=== PATIENT | male | born 1970 | race Two or more races ===

== ENCOUNTER 2017-11-17 17:38 | Emergency (ER) | payer SELFPAY ==
[2017-11-17 18:39] LABS: BILIRUBIN,URINE NEGATIVE (NEG); CLARITY,URINE CLEAR; COLOR,URINE YELLOW; GLUCOSE,URINE NEGATIVE (NEG); NITRITE,URINE NEGATIVE (NEG); PH,URINE 5.5; PROTEIN,URINE NEGATIVE (NEG-TRACE); UROBILINOGEN,URINE 0.2 mg/dL (0.2 mg/dL)
[2017-11-17 18:44] LABS: BACTERIA,URINE 0 /HPF (0-FEW); RBC,URINE OCC /HPF (0-2); WBC,URINE TNTC /HPF (0-4)
[2017-11-17] MEDS: AZITHROMYCIN 250 MG TABLET. PO (18:57)
[2017-11-17] MEDS: cefTRIAXone IM 250 MG VIAL IM (18:57)
[2017-11-17] MEDS: metroNIDAZOLE 500 MG TABLET PO (18:57)
== END 2017-11-17 19:01 | disposition home or self-care (01) ==
LOC: ER 17:38
DX: R36.9 Urethral discharge, unspecified (principal); R30.0 Dysuria
CPT/HCPCS: 81001; 87491; 87591; 96372; 99284; J0696; Q0144